=== PATIENT | female | born 1950 | race Caucasian/White ===

== ENCOUNTER 2020-06-22 13:33 | Inpatient (IN) | payer MEDICARE ==
[2020-06-22] VITALS (8 sets, daily range): BP systolic 134–150; BP diastolic 47–56
[~2020-06-22] VITALS: Ht 147 cm; Wt 45.2 kg
[~2020-06-22 13:33] MED LIST: BENZ200C25 PO; DOXY100C2 PO; ESTR0.455 PO; METH4TAB PO
[2020-06-22] MEDS ORDERED: NS IV 1000 ML 1,000 ML ONE (14:16)
[2020-06-22] MEDS ORDERED: PIPERACILLIN SODIUM/TAZOBACTAM 4.5 GM in NS (IVPB) 100 ML IV ONE (14:45)
[2020-06-22] MEDS ORDERED: ACETAMINOPHEN 500 MG TAB (TYLENOL) PO PRN (14:45)
[2020-06-22] MEDS ORDERED: NS IV ONE (14:45)
--- NOTE | 2020-06-22 14:48 | ED General ---
General Chief Complaint: Respiratory Problems Stated Complaint: COUGH Nursing Triage Note: Patient reports being starting on zithromax on Sunday 06/17. On Wednesday 06/20 started to have fatigue, nausea, generalized weakness. Nursing Sepsis Screen: Possible Sepsis Risk Source of Information: Patient Exam Limitations: No Limitations History of Present Illness Date Seen by Provider: Jun 22, 2020 Time Seen by Provider: 14:25 Initial Comments This is a 70-year-old female who presented for cough, shortness of breath, fever, nausea, and vomiting. States she developed a cough last Wednesday and was treated with a Z-Roberto on Wednesday06/24/20. Today, her symptoms worsened to include the fever, cough, nausea, vomiting. States she had 4 episodes of emesis today has been unable to hold down fluids. Reported chills but does not have a thermometer at home. Denies chest pain, abdominal pain, diarrhea, or dysuria. Timing/Duration: 1 Week, Getting Worse Severity: Moderate Associated Systoms: Cough, Nausea/Vomiting, Weakness Allergies and Home Medications Allergies Coded Allergies: No Known Drug Allergies (Unverified , 11/21/13) Home Medications Benzonatate 200 Mg Capsule, 1 EACH PO TID PRN for COUGH Prescribed by: SHELTON CORDERO on 11/21/131924 Benzonatate 200 Mg Capsule, 1 EACH PO TID PRN for COUGH Prescribed by: SHELTON CORDERO on 11/21/131900 Doxycycline Hyclate 100 Mg Capsule, 1 EACH PO BID Prescribed by: SHELTON CORDERO on 11/21/131924 Doxycycline Hyclate 100 Mg Capsule, 1 EACH PO BID Prescribed by: SHELTON CORDERO on 11/21/131900 Estrogens,Conjugated 0.45 Mg Tablet, 0.9 MG PO DAILY, (Reported) Methylprednisolone 4 Mg/Dose-Pack Tab.ds.pk, 1 PKT PO DAILY PRN for COUGH Prescribed by: SHELTON CORDERO on 11/21/131924 Methylprednisolone 4 Mg/Dose-Pack Tab.ds.pk, 1 PKT PO UD Prescribed by: SHELTON CORDERO on 11/21/131900 Patient Home Medication List Home Medication List Reviewed: Yes Review of Systems Review of Systems Constitutional: chills, dizziness, fever, malaise EENTM: no symptoms reported Respiratory: cough; No hemoptysis, No phlegm; short of breath; No stridor, No wheezing Cardiovascular: no symptoms reported Gastrointestinal: no symptoms reported Genitourinary: no symptoms reported Musculoskeletal: no symptoms reported Skin: no symptoms reported Psychiatric/Neurological: No Symptoms Reported Hematologic/Lymphatic: No Symptoms Reported Immunological/Allergic: no symptoms reported Past Rvhjpkv-Mpoajd-Stdlal Hx Patient Social History Alcohol Use: Denies Use Recreational Drug Use: No Smoking Status: Current Everyday Smoker Type Used: Cigarettes Recent Foreign Travel: No Contact w/Someone Who Travel: No Recent Infectious Disease Expo: No Past Medical History Surgeries: Yes Respiratory: Yes (mycoplasma pnuemonia) Cardiac: No Neurological: No Reproductive Disorders: No Sexually Transmitted Disease: No Gastrointestinal: No Musculoskeletal: No Endocrine: No Cancer: No Psychosocial: No Integumentary: No Blood Disorders: No Physical Exam-Suspected Sepsis Physical Exam Vital Signs Vital Signs - First Documented 06/22/20 06/22/20 06/22/20 14:07 17:41 19:13 Temp 38.6 Pulse 122 Resp 20 B/P (MAP) 161/72 (101) Pulse Ox 94 O2 Delivery Room Air FiO2 21 Capillary Refill : Less Than 3 Seconds Blood Pressure Mean: 101 Height, Weight, BMI Height: 5'0" Weight: 90lbs. oz. 40.529582qt; 18.00 BMI Method:Stated General Appearance: No Apparent Distress, WD/WN Eyes: Bilateral Eye Normal Inspection, Bilateral Eye PERRL, Bilateral Eye EOMI HEENT: PERRL/EOMI, TMs Normal, Normal ENT Inspection, Pharynx Normal Neck: Full Range of Motion, Normal Inspection, Non Tender Respiratory: Chest Non Tender, No Accessory Muscle Use, No Respiratory Distress, Crackles Cardiovascular: Regular Rate, Rhythm, No Edema, No Gallop, No Murmur, Normal Peripheral Pulses Gastrointestinal: Normal Bowel Sounds, Non Tender, Soft Back: Normal Inspection, No Vertebral Tenderness Extremity: Normal Capillary Refill, Normal Inspection, Normal Range of Motion, Non Tender Neurologic/Psychiatric: Alert, Oriented x3, No Motor/Sensory Deficits, Normal Mood/Affect Skin: normal color, warm/dry Focused Exam Lactate Level 06/22/20 14:20: Lactic Acid Level 0.89 Lactic Acid Level Progress/Results/Core Measures Suspected Sepsis Recent Fever Within 48 Hours: Yes Infection Criteria Present: Documented Infection New/Unexplained Altered Menta: No Sepsis Screen: Possible Sepsis Risk SIRS Temperature: Pulse: 122 Respiratory Rate: 20 Laboratory Tests 06/22/20 14:20: White Blood Count 30.3*H Blood Pressure 161 /72 Mean: 101 06/22/20 14:20: Lactic Acid Level 0.89 Laboratory Tests 06/22/20 14:20: Creatinine 0.72, INR Comment 1.5H, Platelet Count 278, Total Bilirubin 0.7 Results/Orders Lab Results Laboratory Tests Test 06/22/20 14:20 06/22/20 16:20 06/22/20 17:20 Range/Units White Blood Count 30.3 *H 4.3-11.0 10^3/uL Red Blood Count 3.48 L 4.35-5.85 10^6/uL Hemoglobin 11.0 L 11.5-16.0 G/DL Hematocrit 33 L 35-52 % Mean Corpuscular Volume 96 80-99 FL Mean Corpuscular Hemoglobin 32 25-34 PG Mean Corpuscular Hemoglobin Concent 33 32-36 G/DL Red Cell Distribution Width 13.1 10.0-14.5 % Platelet Count 278 130-400 10^3/uL Mean Platelet Volume 10.8 H 7.4-10.4 FL Neutrophils (%) (Auto) 90 H 42-75 % Lymphocytes (%) (Auto) 5 L 12-44 % Monocytes (%) (Auto) 5 0-12 % Eosinophils (%) (Auto) 0 0-10 % Basophils (%) (Auto) 0 0-10 % Neutrophils # (Auto) 27.4 H 1.8-7.8 X 10^3 Lymphocytes # (Auto) 1.4 1.0-4.0 X 10^3 Monocytes # (Auto) 1.5 H 0.0-1.0 X 10^3 Eosinophils # (Auto) 0.0 0.0-0.3 10^3/uL Basophils # (Auto) 0.0 0.0-0.1 10^3/uL Neutrophils % (Manual) 87 % Lymphocytes % (Manual) 9 % Monocytes % (Manual) 4 % Hypersegmented Neutrophils SLIGHT Blood Morphology Comment NORMAL Prothrombin Time 19.0 H 12.2-14.7 SEC INR Comment 1.5 H 0.8-1.4 Activated Partial Thromboplast Time 35 24-35 SEC D-Dimer 1.90 H 0.00-0.49 UG/ML Sodium Level 131 L 135-145 MMOL/L Potassium Level 3.6 3.6-5.0 MMOL/L Chloride Level 97 L 98-107 MMOL/L Carbon Dioxide Level 20 L 21-32 MMOL/L Anion Gap 14 5-14 MMOL/L Blood Urea Nitrogen 10 7-18 MG/DL Creatinine 0.72 0.60-1.30 MG/DL Estimat Glomerular Filtration Rate > 60 BUN/Creatinine Ratio 14 Glucose Level 86 70-105 MG/DL Lactic Acid Level 0.89 0.50-2.00 MMOL/L Calcium Level 9.3 8.5-10.1 MG/DL Corrected Calcium 9.2 8.5-10.1 MG/DL Total Bilirubin 0.7 0.1-1.0 MG/DL Aspartate Amino Transf (AST/SGOT) 21 5-34 U/L Alanine Aminotransferase (ALT/SGPT) 16 0-55 U/L Alkaline Phosphatase 88 40-136 U/L Total Protein 7.3 6.4-8.2 GM/DL Albumin 4.1 3.2-4.5 GM/DL Procalcitonin 24.46 H <0.10 NG/ML Coronavirus 2019 ([facility]) Negative Negative My Orders Orders - MESERET ALDRICH CAN RUNNER Ns Iv 1000 Ml (Sodium Chloride 0.9%) (06/22/20 14:16) Cbc With Automated Diff (06/22/20 14:44) Comprehensive Metabolic Panel (06/22/20 14:44) Blood Culture (06/22/20 14:44) Sputum Culture (06/22/20 14:44) Urinalysis (06/22/20 14:44) Urine Culture (06/22/20 14:44) Protime With Inr (06/22/20 14:44) Partial Thromboplastin Time (06/22/20 14:44) Chest 1 View, Ap/Pa Only (06/22/20 14:44) Acetaminophen Tablet (Tylenol Tablet) (06/22/20 14:45) Ed Iv/Invasive Line Start (06/22/20 14:44) Ed Iv/Invasive Line Start (06/22/20 14:44) Vital Signs Adult Sepsis Patie Q15M (06/22/20 14:44) Ns Iv 1000 Ml (Sodium Chloride 0.9%) (06/22/20 14:45) Piperacillin Sodium/Tazobactam (Zosyn Vi (06/22/20 14:45) Lactic Acid Analyzer (06/22/20 14:44) Manual Differential (06/22/20 14:20) Procalcitonin (Pct) (06/22/20 14:56) Medications Given in ED Current Medications Medications Dose Ordered Sig/Gia Route Start Time Stop Time Status Last Admin Dose Admin Acetaminophen 1,000 mg ONCE PRN PO 06/22/20 14:45 06/22/20 15:11 DC 06/22/20 15:10 1,000 MG Piperacillin Sod/ Tazobactam Sod 4.5 gm/Sodium Chloride 100 ml @ 200 mls/hr ONCE ONCE IV 06/22/20 14:45 06/22/20 15:14 DC 06/22/20 15:10 200 MLS/HR Sodium Chloride 1,000 ml @ ud STK-MED ONCE .ROUTE 06/22/20 14:16 06/22/20 14:21 DC 06/22/20 14:27 999 MLS/HR Vital Signs/I&O 06/22/20 06/22/20 06/22/20 06/22/20 14:07 17:41 18:00 18:00 Temp 38.6 37.0 37.3 Pulse 122 89 99 Resp 20 18 18 B/P (MAP) 161/72 (101) 127/49 150/51 (84) Pulse Ox 94 94 94 94 O2 Delivery Room Air Room Air Room Air 06/22/20 06/22/20 06/22/20 06/22/20 18:15 18:17 19:13 19:35 Temp 36.6 Pulse 93 89 86 Resp 17 B/P (MAP) 134/47 (76) Pulse Ox 95 96 96 O2 Delivery Room Air Room Air FiO2 21 06/22/20 06/22/20 20:00 20:11 Temp 37.0 Pulse Ox 97 O2 Delivery Room Air Room Air Capillary Refill : Less Than 3 Seconds Blood Pressure Mean: 101 Progress Note : Progress Note 70-year-old female recently treated with Z-Roberto for respiratory symptoms. Will workup for sepsis at this time, sepsis protocol initiated. Labs reviewed with WBC of 30.3, lactic acid normal at 0.89, procalcitonin 24.4. Received Tylenol 1 g with reduction in temperature from 102.5 to 101.8. Received 2 L of NS in ED, BP in left arm noted to be 90s 80s systolically over 50s, and right arm, 120s-130s systolically. Hemodynamically stable after 2 L. 1700: Orders for inpatient ICU admission with sepsis protocol completed after rapid COVID screen was negative. Diagnostic Imaging Diagonstic Imaging: Xray Plain Films/CT/US/NM/MRI: chest Comments NAME: KP SEGURA [facility] REC#: [id number] PT STATUS: REG ER : 1950 PHYSICIAN: MESERET ALDRICH CAN RUNNER ADMIT DATE: 06/22/20/ER Draft Date of Exam:06/22/20 CHEST 1 VIEW, AP/PA ONLY INDICATION: Sepsis, COMPARISON: 11/13/2015. EXAMINATION: Single view of the chest were obtained. FINDINGS: There is a probable developing infiltrate in the right middle lobe. The left lung is clear. The heart is normal. There is no pneumothorax. Osseous structures are normal. IMPRESSION: Probable developing infiltrate in the right middle lobe. Follow-up recommended. Dictated on workstation # [id number] Dict: 06/22/20 1503 Trans: 06/22/20 1509 [facility] [id number] Interpreted by: DHARMESH LINO Electronically signed by: Reviewed: Reviewed by Me Departure Communication (Admissions) Time/Spoke to Admitting Phy: 15:[address] Beal. Agreeable with inpatient ICU admission, recommended rapid COVID screen. 1658: Rapid COVID negative, will admit to ICU for pneumonia, sepsis. Impression Primary Impression: Acute pneumonia Additional Impression: Sepsis Disposition: ADMITTED INPATIENT Condition: Stable Admissions Decision to Admit Reason: Admit from ER (General) Decision to Admit/Date: Jun 22, 2020 Time/Decision to Admit Time: 15:45 Departure-Patient Inst. Referrals: TESSA GIBBONS MD (PCP/Family) Primary Care Physician Copy Copies To 1: SOUMYA GATES MD Copies To 2: ELIZ AGRAWAL STORMY D CAN RUNNER Jun 22, 2020 14:48
[2020-06-22 14:54] LABS: BASOPHILS % (AUTO) 0 % (0-10); EOSINOPHILS % (AUTO) 0 % (0-10); HEMATOCRIT 33 % (35-52); LYMPHOCYTES # (AUTO) 1.4 X 10^3 (1.0-4.0); LYMPHOCYTES % (AUTO) 5 % (12-44); MEAN CORPUSCULAR HEMOGLOBIN 32 PG (25-34); MEAN CORPUSCULAR HGB CONC 33 G/DL (32-36); MEAN CORPUSCULAR VOLUME 96 FL (80-99); MEAN PLATELET VOLUME 10.8 FL (7.4-10.4); MONOCYTES # (AUTO) 1.5 X 10^3 (0.0-1.0); MONOCYTES % (AUTO) 5 % (0-12); NEUTROPHILS # (AUTO) 27.4 X 10^3 (1.8-7.8); NEUTROPHILS % (AUTO) 90 % (42-75); PLATELET COUNT 278 10^3/uL (130-400)
[2020-06-22 14:56] LABS: WHITE BLOOD COUNT 30.3 10^3/uL (4.3-11.0)
[2020-06-22 15:03] LABS: ALBUMIN 4.1 GM/DL (3.2-4.5); CHLORIDE 97 MMOL/L (98-107); POTASSIUM 3.6 MMOL/L (3.6-5.0); SODIUM 131 MMOL/L (135-145)
[2020-06-22 15:04] LABS: CALCIUM 9.3 MG/DL (8.5-10.1)
[2020-06-22 15:05] LABS: GLUCOSE 86 MG/DL (70-105); TOTAL PROTEIN 7.3 GM/DL (6.4-8.2)
[2020-06-22 15:07] LABS: BILIRUBIN,TOTAL 0.7 MG/DL (0.1-1.0); CARBON DIOXIDE 20 MMOL/L (21-32)
[2020-06-22 15:09] LABS: ALKALINE PHOSPHATASE 88 U/L (40-136); CREATININE SERUM 0.72 MG/DL (0.60-1.30); GFR ESTIMATED > 60
[2020-06-22 15:10] LABS: BUN/CREATININE RATIO 14
--- NOTE | 2020-06-22 15:10 | Diagnostic Imaging Report ---
INDICATION: Sepsis, COMPARISON: 11/13/2015. EXAMINATION: Single view of the chest were obtained. FINDINGS: There is a probable developing infiltrate in the right middle lobe. The left lung is clear. The heart is normal. There is no pneumothorax. Osseous structures are normal. IMPRESSION: Probable developing infiltrate in the right middle lobe. Follow-up recommended. Dictated by: Dictated on workstation # [id number]
[2020-06-22 15:12] LABS: ALANINE AMINOTRANSFERASE 16 U/L (0-55)
[2020-06-22 15:13] LABS: INR 1.5 (0.8-1.4)
[2020-06-22 15:36] LABS: HYPERSEGMENTED NEUT SLIGHT; LYMPHOCYTES % (MANUAL) 9 %; MONOCYTES % (MANUAL) 4 %; NEUTROPHILS % (MANUAL) 87 %; RBC MORPH NORMAL
--- NOTE | 2020-06-22 17:43 | NUR ---
RECEIVED REPORT FROM BE HERNANDEZ.
--- NOTE | 2020-06-22 18:00 | NUR ---
KP SEGURA admitted to room CU1-1, with an admitting diagnosis of SEPSIS, PNEUMONIA, COVID PUI, on 06/22/20 from ER via WHEELCHAIR, accompanied by THIS RN AND LEAH HOOPER. KP SEGURA introduced to surroundings, call light, bed controls, phone, TV, temperature control, lights, meal times, smoking policy, visitor policy, side rail policy, bathrooms and showers. Patient Rights given to patient in the handbook. KP SEGURA verbalizes understanding that [facility] is not responsible for the loss or damage to any personal effects or valuables that are kept in the patients possession during their hospitalization.
[2020-06-22] MEDS ORDERED: LACTATED RINGERS 1,000 ML IV ONE ×2 (18:23→18:24)
--- NOTE | 2020-06-22 19:00 | NUR ---
LR STARTED AT 150ML/HR PER BRIDGE ORDERS. ORDER NOT SCANNED ON E-MAR DUE TO ORDERS NOT APPEARING ON E-MAR YET.
[2020-06-22] MEDS ORDERED: LACTATED RINGERS 1,000 ML IV SCH (19:15)
[2020-06-22] MEDS ORDERED: ENOXAPARIN 40 MG/0.4 ML (LOVENOX) SYR SQ SCH (19:15)
[2020-06-22] MEDS ORDERED: RT-ALBUTEROL INHALER HFA (VENTOLIN HFA) 18 GM IH PRN (19:30)
[2020-06-22] MEDS ORDERED: ENOXAPARIN 40 MG/0.4 ML (LOVENOX) SYR ONE (19:58)
[2020-06-22] MEDS: LACTATED RINGERS 1,000 ML IV SCH (20:43)
[2020-06-22] MEDS ORDERED: NS (IVPB) 100 ML ONE (20:52)
[2020-06-22] MEDS ORDERED: PIPERACILLIN/TAZO 4.5 GM VIAL (ZOSYN) IV ONE (20:52)
[2020-06-22] MEDS: PIPERACILLIN/TAZOBACTAM (BULK) 4.5 GM in NS (IVPB) 100 ML IV SCH (21:18)
[2020-06-23] VITALS (14 sets, daily range): BP systolic 142–161; BP diastolic 48–68
[2020-06-23] MEDS: LACTATED RINGERS 1,000 ML IV SCH ×2 (00:47→04:41)
[2020-06-23 03:47] LABS: BASOPHILS % (AUTO) 0 % (0-10); EOSINOPHILS % (AUTO) 0 % (0-10); HEMATOCRIT 28 % (35-52); HEMOGLOBIN 8.9 G/DL (11.5-16.0); LYMPHOCYTES # (AUTO) 1.8 X 10^3 (1.0-4.0); LYMPHOCYTES % (AUTO) 7 % (12-44); MEAN CORPUSCULAR HEMOGLOBIN 31 PG (25-34); MEAN CORPUSCULAR HGB CONC 32 G/DL (32-36); MEAN CORPUSCULAR VOLUME 98 FL (80-99); MEAN PLATELET VOLUME 10.4 FL (7.4-10.4); MONOCYTES # (AUTO) 1.3 X 10^3 (0.0-1.0); MONOCYTES % (AUTO) 5 % (0-12); NEUTROPHILS # (AUTO) 21.4 X 10^3 (1.8-7.8); NEUTROPHILS % (AUTO) 87 % (42-75); PLATELET COUNT 237 10^3/uL (130-400); WHITE BLOOD COUNT 24.6 10^3/uL (4.3-11.0)
[2020-06-23 03:57] LABS: CHLORIDE 106 MMOL/L (98-107); POTASSIUM 3.5 MMOL/L (3.6-5.0); SODIUM 138 MMOL/L (135-145)
[2020-06-23 03:58] LABS: CALCIUM 8.2 MG/DL (8.5-10.1)
[2020-06-23 03:59] LABS: GLUCOSE 62 MG/DL (70-105)
[2020-06-23 04:00] LABS: CARBON DIOXIDE 20 MMOL/L (21-32)
[2020-06-23 04:02] LABS: PHOSPHORUS 1.9 MG/DL (2.3-4.7)
[2020-06-23 04:03] LABS: BUN/CREATININE RATIO 11; CREATININE SERUM 0.71 MG/DL (0.60-1.30); GFR ESTIMATED > 60
[2020-06-23 04:05] LABS: MAGNESIUM 1.2 MG/DL (1.6-2.4)
[2020-06-23] MEDS: KCL 20 MEQ TAB (K-DUR) PO SCH (04:08)
[2020-06-23] MEDS: POTASSIUM CL 10MEQ/50ML IVPB 50 ML IV SCH (04:08)
[2020-06-23] MEDS: MAGNESIUM 1 GM/100 ML IVPB 100 ML IV SCH ×3 (04:08→06:56)
[2020-06-23] MEDS ORDERED: NS (IVPB) 100 ML ONE (04:10)
[2020-06-23] MEDS ORDERED: PIPERACILLIN/TAZO 4.5 GM VIAL (ZOSYN) IV ONE (04:10)
[2020-06-23] MEDS: PIPERACILLIN/TAZOBACTAM (BULK) 4.5 GM in NS (IVPB) 100 ML IV SCH ×3 (04:37→21:25)
[2020-06-23] MEDS ORDERED: KCL 20 MEQ TAB (K-DUR) PO ONE (09:00)
[2020-06-23] MEDS ORDERED: LACTATED RINGERS 1,000 ML IV SCH (09:41)
--- NOTE | 2020-06-23 09:45 | History & Physical ---
History of Present Illness History of Present Illness Reason for visit/HPI 70 yo F admitted for sepsis due to pneumonia. Rapid COVID19 test was negative. COVID 19 PCR test is pending. Patient was seen by Dr. Moya's office last week and was started on azithromycin for URI, cough symptoms. It has not helped her so she presented to the ER. She had a 103F temperature, WBC elevated 30K. Prolactin elevated. CXR showing right side pneumonia. Patient is on room air with a little shortness of breath. No other health concerns. She has used bevespi in the past for allergies as well as flonase. 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 Patient reports she is feeling much better. Still requiring no oxygen. Date of Admission Jun 22, 2020 at 17:00 Date Seen by a Provider: Jun 23, 2020 Time Seen by a Provider: 09:42 I consulted on this patient on 06/23/20 09:42 Attending Physician Jono Beal MD Admitting Physician Aleta Moya MD Consult Allergies and Home Medications Allergies Coded Allergies: No Known Drug Allergies (Unverified , 11/21/13) Home Medications Benzonatate 200 Mg Capsule, 1 EACH PO TID PRN for COUGH Prescribed by: SHELTON CORDERO on 11/21/131924 Benzonatate 200 Mg Capsule, 1 EACH PO TID PRN for COUGH Prescribed by: SHELTON CORDERO on 11/21/131900 Doxycycline Hyclate 100 Mg Capsule, 1 EACH PO BID Prescribed by: SHELTON CORDERO on 11/21/131924 Doxycycline Hyclate 100 Mg Capsule, 1 EACH PO BID Prescribed by: SHELTON CORDERO on 11/21/131900 Estrogens,Conjugated 0.45 Mg Tablet, 0.9 MG PO DAILY, (Reported) Methylprednisolone 4 Mg/Dose-Pack Tab.ds.pk, 1 PKT PO DAILY PRN for COUGH Prescribed by: SHELTON CORDERO on 11/21/131924 Methylprednisolone 4 Mg/Dose-Pack Tab.ds.pk, 1 PKT PO UD Prescribed by: SHELTON CORDERO on 11/21/131900 Patient Home Medication List Home Medication List Reviewed: Yes Past Ibzhkfr-Jrwnxv-Wlvqim Hx Patient Social History Alcohol Use: Denies Use Recreational Drug Use: No Smoking Status: Current Everyday Smoker Type Used: Cigarettes Recent Foreign Travel: No Contact w/other who traveled: No Recent Infectious Disease Expo: No Immunizations Up To Date Date of Influenza Vaccine: Jun 07, 2020 Surgeries Yes Respiratory Yes (mycoplasma pnuemonia) Cardiovascular No Neurological No Reproductive System Hx Reproductive Disorders: No Sexually Transmitted Disease: No Gastrointestinal No Musculoskeletal No Endocrine History of Endocrine Disorders: No Cancer No Psychosocial History of Psychiatric Problem: No Integumentary History of Skin or Integumenta: No Blood Transfusions History of Blood Disorders: No Family Medical History Family Hx: Cardiovascular disease 19 MOTHER FH: CVA (cerebrovascular accident) 19 MOTHER Stroke or transient ischemic attack in father 19 FATHER Valvular heart disease G8 BROTHER Review of Systems Review of Systems General: No Chills, No Night Sweats; Fatigue HEENT: No Head Aches Pulmonary: Dyspnea, Cough (mostly dry) Cardiovascular: Chest Pain, Palpitations Gastrointestinal: Nausea; No: Vomiting, Abdominal Pain Genitourinary: No Dysuria Musculoskeletal: No: neck pain, shoulder pain Neurological: Weakness Physical Exam Vital Signs Vital Signs - First Documented 06/22/20 06/22/20 06/22/20 14:07 17:41 19:13 Temp 38.6 Pulse 122 Resp 20 B/P (MAP) 161/72 (101) Pulse Ox 94 O2 Delivery Room Air FiO2 21 Capillary Refill : Less Than 3 Seconds Height, Weight, BMI Height: 5'0" Weight: 90lbs. oz. 40.205060nf; 18.00 BMI Method:Stated General Appearance: WD/WN, Mild Distress HEENT: PERRL/EOMI Neck: Non Tender, Supple Respiratory: Chest Non Tender, No Accessory Muscle Use, Decreased Breath Sounds (right lung) Cardiovascular: Regular Rate, Rhythm, No Edema Gastrointestinal: Non Tender, Soft Rectal: Deferred Back: No CVA Tenderness, No Vertebral Tenderness Extremity: Non Tender, No Calf Tenderness Neurologic/Psychiatric: Alert, Oriented x3 Skin: Warm/Dry Assessment/Plan Assessment/Plan Admission Dx sepsis secondary to pneumonia Admission Status: Inpatient Order (span 2 midnights) Reason for Inpatient Admission: Patient admitted with sepsis due to pneumonia. Will require 2 midnights for management of care as she could decompensate quickly. She will need IV antibiotics until she is at least 24hours fever free. Assessment and Plan Admitted 06/22/20 for sepsis due to pneumonia. 06/23/20- sodium improved with IVF. Correcting hypomagnesemia and hypokalemia. Blood pressure has significantly improved from the ER. Patient still on room air. Will turn her IVF off because she is tolerating a diet. Awaiting COVID 19 test. Rapid was negative. Dispo: if she continues to improve and COVID19 negative- transition to augmentin and d/c to home 06/24/20 Problems: (1) Sepsis (2) Acute pneumonia (3) Hyponatremia (4) Hypokalemia (5) Hypomagnesemia Clinical Quality Measures DVT/VTE Risk/Contraindication: Risk Factor Score Per Nursin RFS Level Per Nursing on Admit: 4+=Very High JONO BEAL MD Jun 23, 2020 09:45
--- NOTE | 2020-06-23 11:48 | NUR ---
PT TRANSFERRED VIA W/C WITH PUI PRECAUTIONS TO ROOM 402 WITHOUT DIFFICULTIES. PATIENT TOLERATED WELL. ALL PERSONAL BELONGINGS WITH PATIENT.
[2020-06-23] MEDS: RT-ALBUTEROL INHALER HFA (VENTOLIN HFA) 18 GM IH PRN (18:50)
[2020-06-23] MEDS ORDERED: ENOXAPARIN 40 MG/0.4 ML (LOVENOX) SYR SQ SCH ×2 (21:00→21:15)
[2020-06-24] MEDS: RT-ALBUTEROL INHALER HFA (VENTOLIN HFA) 18 GM IH PRN (01:57)
--- NOTE | 2020-06-24 02:10 | NUR ---
0157-pt called this rn in room-pt sitting upright in bed coughing, pt states that she is having shortness of air- spo2 93% hr 94 prn albuterol inhaler administered 0210-pt states that the shortness of air has resolved-spo2 97% hr 106-denies any other complaints or concerns at this time.
[2020-06-24 04:35] VITALS: BP 158/62
[2020-06-24] MEDS: PIPERACILLIN/TAZOBACTAM (BULK) 4.5 GM in NS (IVPB) 100 ML IV SCH (05:28)
[2020-06-24 06:12] LABS: BASOPHILS % (AUTO) 0 % (0-10); EOSINOPHILS % (AUTO) 0 % (0-10); HEMATOCRIT 27 % (35-52); HEMOGLOBIN 8.9 G/DL (11.5-16.0); LYMPHOCYTES # (AUTO) 1.5 X 10^3 (1.0-4.0); LYMPHOCYTES % (AUTO) 12 % (12-44); MEAN CORPUSCULAR HEMOGLOBIN 32 PG (25-34); MEAN CORPUSCULAR HGB CONC 33 G/DL (32-36); MEAN CORPUSCULAR VOLUME 97 FL (80-99); MEAN PLATELET VOLUME 10.8 FL (7.4-10.4); MONOCYTES # (AUTO) 0.9 X 10^3 (0.0-1.0); MONOCYTES % (AUTO) 7 % (0-12); NEUTROPHILS # (AUTO) 9.8 X 10^3 (1.8-7.8); NEUTROPHILS % (AUTO) 81 % (42-75); PLATELET COUNT 277 10^3/uL (130-400); WHITE BLOOD COUNT 12.1 10^3/uL (4.3-11.0)
[2020-06-24 06:21] LABS: CHLORIDE 104 MMOL/L (98-107); POTASSIUM 3.4 MMOL/L (3.6-5.0); SODIUM 138 MMOL/L (135-145)
[2020-06-24 06:22] LABS: CALCIUM 8.7 MG/DL (8.5-10.1)
[2020-06-24 06:23] LABS: GLUCOSE 65 MG/DL (70-105)
[2020-06-24 06:24] LABS: CARBON DIOXIDE 20 MMOL/L (21-32)
[2020-06-24 06:26] LABS: PHOSPHORUS 1.6 MG/DL (2.3-4.7)
[2020-06-24 06:27] LABS: CREATININE SERUM 0.72 MG/DL (0.60-1.30); GFR ESTIMATED > 60
[2020-06-24 06:28] LABS: BUN/CREATININE RATIO 7
[2020-06-24 06:29] LABS: MAGNESIUM 1.4 MG/DL (1.6-2.4)
[2020-06-24] MEDS ORDERED: KCL 20 MEQ TAB (K-DUR) PO NR (07:00)
[2020-06-24] MEDS: POTASSIUM CL 10MEQ/50ML IVPB 50 ML IV SCH (07:02)
[2020-06-24] MEDS: KCL 20 MEQ TAB (K-DUR) PO SCH (07:15)
[2020-06-24] MEDS: MAGNESIUM 1 GM/100 ML IVPB 100 ML IV SCH ×3 (07:54→09:02)
[2020-06-24 08:00] VITALS: BP 152/64
--- NOTE | 2020-06-24 09:14 | Discharge Summary ---
Diagnosis/Chief Complaint Date of Admission Jun 22, 2020 at 17:00 Date of Discharge Discharge Summary Discharge Physical Examination Allergies: Coded Allergies: No Known Drug Allergies (Unverified , 11/21/13) Vitals & I&Os Vital Signs Date Time Temp Pulse Resp B/P (MAP) Pulse Ox O2 Delivery O2 Flow Rate FiO2 06/24/20 07:00 Room Air 06/24/20 04:35 36.4 95 22 158/62 (94) 97 06/23/20 12:53 95.00 06/22/20 19:13 21 Hospital Course Pending Labs Laboratory Tests 06/24/20 05:45: White Blood Count 12.1, Red Blood Count 2.82, Hemoglobin 8.9, Hematocrit 27, Mean Corpuscular Volume 97, Mean Corpuscular Hemoglobin 32, Mean Corpuscular Hemoglobin Concent 33, Red Cell Distribution Width 13.3, Platelet Count 277, Mean Platelet Volume 10.8, Neutrophils (%) (Auto) 81, Lymphocytes (%) (Auto) 12, Monocytes (%) (Auto) 7, Eosinophils (%) (Auto) 0, Basophils (%) (Auto) 0, Neutrophils # (Auto) 9.8, Lymphocytes # (Auto) 1.5, Monocytes # (Auto) 0.9, Eosinophils # (Auto) 0.0, Basophils # (Auto) 0.0, Sodium Level 138, Potassium Level 3.4, Chloride Level 104, Carbon Dioxide Level 20, Anion Gap 14, Blood Urea Nitrogen 5, Creatinine 0.72, Estimat Glomerular Filtration Rate > 60, BUN/Creatinine Ratio 7, Glucose Level 65, Calcium Level 8.7, Phosphorus Level 1.6, Magnesium Level 1.4 Discharge Instructions to patient/family Please see electronic discharge instructions given to patient. Discharge Medications Reviewed and agree with Discharge Medication list on patient's Discharge Instruction sheet Clinical Quality Measures DVT/VTE Risk/Contraindication: Risk Factor Score Per Nursin RFS Level Per Nursing on Admit: 4+=Very High TESSA GIBBONS MD Jun 24, 2020 09:14
[2020-06-24] MEDS ORDERED: AUGMENTIN 875 MG TAB (AMOXICILLIN/CLAVULANATE) PO NR (09:15)
[2020-06-24] MEDS ORDERED: LACTOBACILLUS ACIDOPHILUS (PROBIOTIC) CAPSULE PO NR (09:15)
[2020-06-24] MEDS ORDERED: LACT1CAP87 PO (09:18)
[2020-06-24] MEDS ORDERED: AMOX-358 PO (09:18)
[2020-06-24] MEDS ORDERED: MAGN250T2 PO (09:18)
[2020-06-24] MEDS ORDERED: ALBU18HF2 IH (09:18)
--- NOTE | 2020-06-24 09:19 | Discharge Inst-Simple/Standard ---
Discharge Inst-Standard Reconcile Patient Problems Problems Reviewed?: Yes Discharge Medications New, Converted or Re-Newed RX: Transmitted to Pharmacy ([facility]) Patient Instructions/Follow Up Plan of Care/Instructions/FU: 1 wk follow up with [facility] use inhaler scheduled four times daily and may use up to every 4 hours if needed for shortness of breath take antibiotics with food take probiotics three times daily to prevent diarrhea from the antibiotics Activity as Tolerated: Yes Discharge Diet: Regular Diet Return to The Hospital For: any concern for worsening shortness of breath, trouble breathing, allergic reaction to antibiotics, or any other lifethreatening illness or injury Planned Outpatient Orders/Ref. Pneu Vac Indicated: Yes Medication List: Active Scripts Active Magnesium 250 Mg Tablet 250 Mg PO DAILY Ventolin Hfa (Albuterol Sulfate) 18 Gm Hfa.aer.ad 0 Gm IH RTQ4HR PRN use scheduled qid x 3 days and q 4 hours prn shortness of breath Acidophilus Lactobacilli (Lactobacillus Acidophilus) 1 Each Capsule 1 Each PO TIDWM Augmentin 875-125 Tablet (Amoxicillin/Potassium Clav) 1 Each Tablet 1 Each PO BID Lab results: Laboratory Tests Test 06/24/20 05:45 Range/Units White Blood Count 12.1 H 4.3-11.0 10^3/uL Red Blood Count 2.82 L 4.35-5.85 10^6/uL Hemoglobin 8.9 L 11.5-16.0 G/DL Hematocrit 27 L 35-52 % Mean Corpuscular Volume 97 80-99 FL Mean Corpuscular Hemoglobin 32 25-34 PG Mean Corpuscular Hemoglobin Concent 33 32-36 G/DL Red Cell Distribution Width 13.3 10.0-14.5 % Platelet Count 277 130-400 10^3/uL Mean Platelet Volume 10.8 H 7.4-10.4 FL Neutrophils (%) (Auto) 81 H 42-75 % Lymphocytes (%) (Auto) 12 12-44 % Monocytes (%) (Auto) 7 0-12 % Eosinophils (%) (Auto) 0 0-10 % Basophils (%) (Auto) 0 0-10 % Neutrophils # (Auto) 9.8 H 1.8-7.8 X 10^3 Lymphocytes # (Auto) 1.5 1.0-4.0 X 10^3 Monocytes # (Auto) 0.9 0.0-1.0 X 10^3 Eosinophils # (Auto) 0.0 0.0-0.3 10^3/uL Basophils # (Auto) 0.0 0.0-0.1 10^3/uL Sodium Level 138 135-145 MMOL/L Potassium Level 3.4 L 3.6-5.0 MMOL/L Chloride Level 104 98-107 MMOL/L Carbon Dioxide Level 20 L 21-32 MMOL/L Anion Gap 14 5-14 MMOL/L Blood Urea Nitrogen 5 L 7-18 MG/DL Creatinine 0.72 0.60-1.30 MG/DL Estimat Glomerular Filtration Rate > 60 BUN/Creatinine Ratio 7 Glucose Level 65 L 70-105 MG/DL Calcium Level 8.7 8.5-10.1 MG/DL Phosphorus Level 1.6 L 2.3-4.7 MG/DL Magnesium Level 1.4 L 1.6-2.4 MG/DL My orders: Orders - TESSA GIBBONS MD Amoxicillin/Clavulanate Tablet (Augmenti (06/24/20 09:15) Lactobacillus Acidophilus Cap (Acidophil (06/24/20 09:15) Attending Discharge Inpt/Inobs (06/24/20 09:14) TESSA GIBBONS MD Jun 24, 2020 09:19
[2020-06-24 10:50] VITALS: BP 152/64
--- NOTE | 2020-06-24 12:34 | NUR ---
I WENT THROUGH THE PATIENT'S MED LIST ON FILE FROM HER SNF TO HELP Niraj Terri COMPLETE THIS MED REC. OTC: PROBIOTIC TYLENOL IMODIUM CLARITIN TRIAMCINOLONE CREAM ASPIRIN Addendum: 06/24/20 at 1236 by CHRISTIE EUCEDA mailroom courier DISREGARD PREVIOUS NOTE. I WAS UNABLE TO COMPLETE THIS MED REC DUE TO THE PATIENT BEING DISCHARGED.
[2020-06-24] MEDS ORDERED: ENOXAPARIN 40 MG/0.4 ML (LOVENOX) SYR SQ SCH (21:00)
== END 2020-06-24 10:50 | disposition home or self-care (01) | DRG 871 ==
LOC: EDUNIT# 13:33 → ER 13:34 → ICU 17:00 → 4TH 06-23 12:00
PROVIDERS: ADMIT Family Medicine; ATTEND Family Medicine
DX: A41.9 Sepsis, unspecified organism (principal); J18.9 Pneumonia, unspecified organism; E87.1 Hypo-osmolality and hyponatremia; E83.42 Hypomagnesemia; E87.6 Hypokalemia; F17.210 Nicotine dependence, cigarettes, uncomplicated; Z20.828 Contact with and (suspected) exposure to other viral communicable diseases
CPT/HCPCS: 36415; 71045; 80048; 80053; 83605; 83735; 84100; 84145; 85007; 85025; 85027; 85379; 85610; 85730; 87040; 87081; 87635; 93005; 94640; 94664

== ENCOUNTER 2021-09-28 11:24 | Emergency (ER) | payer MEDICARE, OTHER ==
[~2021-09-28] VITALS: Ht 149.8 cm; Wt 40.8 kg
[~2021-09-28 11:24] MED LIST changes: +ALBU18HF2 IH; +AMOX-358 PO; +LACT1CAP87 PO; +MAGN250T2 PO
[2021-09-28 11:50] VITALS: BP 178/79
[2021-09-28] MEDS ORDERED: LACTATED RINGERS 1,000 ML IV ONE (12:00)
--- NOTE | 2021-09-28 12:04 | ED General ---
General Chief Complaint: COVID19 Suspect/Confirmed Stated Complaint: COVID POSITIVE/WEAKNESS/COUGH Source of Information: Patient History of Present Illness Date Seen by Provider: Sep 28, 2021 Time Seen by Provider: 11:45 Initial Comments PT ARRIVES VIA POV FROM HOME PT STATES HER TESTED + FOR COVID-19 ON 09/12/21 PT STATES SHE WAS NOT HAVING ANY SYMPTOMS, BUT DECIDED TO GET TESTED HERSELF BECAUSE HAD COVID, AND SHE TESTED + FOR COVID-19 ON 09/20/21--WENT THROUGH DRIVE THRU TESTING AT [facility]. DID NOT ACTUALLY SEE A PROVIDER, AND WAS NOT GIVEN ANY RX'S SHE STATES SHE HAS NOT HAD COVID-19 VACCINE PT IS NOT INTERESTED IN BAM/MAB INFUSION STATES SHE IS HERE BECAUSE SHE STILL FEELS WEAK AND HAS DECREASED APPETITE STATES SHE ONLY GETS NAUSEATED WHEN SHE EATS, BUT IS ABLE TO DRINK LIQUIDS OK STATES SHE HAD A COUGH BUT IT IS BETTER, AND FEELS LIKE HER COUGH NOW IS JUST HER NORMAL COUGH FROM COPD. PT CONTINUES TO SMOKE 1 TO 3 PPD PT HAS AN ALBUTEROL INHALER BUT HAS NOT USED IT TODAY. USES HER MAINTENANCE INHALER TWICE A DAY EVERYDAY--BEVESPI DENIES SHORTNESS OF BREATH DENIES FEVER/SWEATS/CHILLS HAD DIARRHEA FOR 3 DAYS, BUT NONE FOR SEVERAL DAYS DENIES HEADACHE TODAY, BUT HAD HEADACHE INITIALLY DENIES BODY ACHES TODAY, BUT HAS HAD THEM +DECREASED TASTE AND SMELL HAS NOT TAKEN ANYTHING FOR SYMPTOMS SYMPTOMS ARE NOT ANY DIFFERENT TODAY IN ANY WAY PT STATES SHE HAS NOT ACTUALLY SOUGHT CARE OR BEEN SEEN BY ANYONE FOR THIS. HOWEVER, ON MED RECONCILIATION, RX FOR DECADRON 4 MG X [address] GIBBONS PCP: DR. GIBBONS Allergies and Home Medications Allergies Coded Allergies: cephalexin (Verified Allergy, Unknown, Itching, 09/28/21) RASH phenobarbital (Verified Allergy, Unknown, 09/28/21) "GOES CRAZY , CANT CONTROL ANYTHING" Patient Home Medication List Home Medication List Reviewed: Yes Albuterol Sulfate (Ventolin Hfa) 18 Gm Hfa.aer.ad, 0 GM IH RTQ4HR PRN for SOA Prescribed by: TESSA GIBBONS on 06/24/20 0918 Amoxicillin/Potassium Clav (Augmentin 875-125 Tablet) 1 Each Tablet, 1 EACH PO BID Prescribed by: TESSA GIBBONS on 06/24/20917 Ciprofloxacin HCl (Ciprofloxacin HCl) 500 Mg Tablet, 500 MG PO BID Prescribed by: MARGUERITE ENRIQUE on 09/28/21 1407 Lactobacillus Acidophilus (Acidophilus Lactobacilli) 1 Each Capsule, 1 EACH PO TIDWM Prescribed by: TESSA GIBBONS on 06/24/20917 Magnesium (Magnesium) 250 Mg Tablet, 250 MG PO DAILY Prescribed by: TESSA GIBBONS on 06/24/20917 Review of Systems Review of Systems Constitutional: see HPI; No chills, No dizziness, No fever; malaise, weakness EENTM: see HPI Respiratory: see HPI, cough Cardiovascular: no symptoms reported Gastrointestinal: see HPI, diarrhea, loss of appetite, nausea; No vomiting Genitourinary: no symptoms reported Musculoskeletal: see HPI Skin: no symptoms reported Psychiatric/Neurological: See HPI Hematologic/Lymphatic: No Symptoms Reported Immunological/Allergic: no symptoms reported Past Cnlkhes-Ivrbez-Jinrpp Hx Patient Social History Tobacco Use?: Yes (1-3 PPD) Tobacco type used: Cigarettes Smoking Status: Current Everyday Smoker Substance use?: No Alcohol Use?: No Past Medical History Surgeries: Yes Hysterectomy, Oophorectomy Respiratory: Yes (mycoplasma pnuemonia) Pneumonia, COPD Cardiac: No Neurological: No Reproductive Disorders: Yes (CERVICAL/UTERINE CANCER) [employer]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 Psychosocial: No Integumentary: No Blood Disorders: No Family Medical History Cardiovascular disease 19 MOTHER FH: CVA (cerebrovascular accident) 19 MOTHER Stroke or transient ischemic attack in father 19 FATHER Valvular heart disease G8 BROTHER SOCIAL HISTORY: -SMOKES 1 TO 3 PPD -ETOH--DENIES USE -DRUGS--DENIES USE Physical Exam Vital Signs Capillary Refill : Height, Weight, BMI Height: 5'0" Weight: 90lbs. oz. 40.622361gg; 18.00 BMI Method:Stated General Appearance: No Apparent Distress, WD/WN, Thin, Other (DOES NOT APPEAR ILL OR TO BE IN ANY DISCOMFORT OR DISTRESS. 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 II- XII Norm as Tested Skin: Normal Color, Warm/Dry Focused Exam Sepsis Stage: Ruled Out Reason for ruling out sepsis: DOES NOT MEET CRITERIA Possible Source: Pulmonary Lactate Level 09/28/21 14:22: Lactic Acid Level 1.35 Time of Focused Exam: 12:40 Respiratory: Normal Breath Sounds, No Accessory Muscle Use, No Respiratory Distress Cardiovascular: Regular Rate, Rhythm, No Murmur Capillary Refill: Less Than 3 Seconds Skin: normal color, warm/dry Lactic Acid Level Laboratory Tests Test 09/28/21 14:22 Lactic Acid Level 1.35 MMOL/L (0.50-2.00) Within 3hrs of presentation: Admin fluids, Admin ABX, Blood cultures prior to ABX's, Focus exam, Lactate level Progress/Results/Core Measures Suspected Sepsis SIRS Temperature: Pulse: Respiratory Rate: Laboratory Tests 09/28/21 12:00: White Blood Count 4.8 Blood Pressure / Mean: 09/28/21 14:22: Lactic Acid Level 1.35 Laboratory Tests 09/28/21 12:00: Creatinine 0.73, Platelet Count 194, Total Bilirubin 0.3 Results/Orders Lab Results Laboratory Tests Test 09/28/21 11:26 09/28/21 12:00 09/28/21 12:08 09/28/21 14:22 Range/Units Lab Scanned Report Referred Lab Report [id number] White Blood Count 4.8 4.3-11.0 10^3/uL Red Blood Count 3.51 L 3.80-5.11 10^6/uL Hemoglobin 11.0 L 11.5-16.0 g/dL Hematocrit 33 L 35-52 % Mean Corpuscular Volume 95 80-99 fL Mean Corpuscular Hemoglobin 31 25-34 pg Mean Corpuscular Hemoglobin Concent 33 32-36 g/dL Red Cell Distribution Width 12.9 10.0-14.5 % Platelet Count 194 130-400 10^3/uL Mean Platelet Volume 10.4 9.0-12.2 fL Immature Granulocyte % (Auto) 0 % Neutrophils (%) (Auto) 57 42-75 % Lymphocytes (%) (Auto) 34 12-44 % Monocytes (%) (Auto) 9 0-12 % Eosinophils (%) (Auto) 0 0-10 % Basophils (%) (Auto) 0 0-10 % Neutrophils # (Auto) 2.7 1.8-7.8 10^3/uL Lymphocytes # (Auto) 1.6 1.0-4.0 10^3/uL Monocytes # (Auto) 0.4 0.0-1.0 10^3/uL Eosinophils # (Auto) 0.0 0.0-0.3 10^3/uL Basophils # (Auto) 0.0 0.0-0.1 10^3/uL Immature Granulocyte # (Auto) 0.0 0.0-0.1 10^3/uL Erythrocyte Sedimentation Rate 47 H 0-30 MM/HR D-Dimer 0.59 H 0.00-0.49 UG/ML Sodium Level 134 L 135-145 MMOL/L Potassium Level 3.6 3.6-5.0 MMOL/L Chloride Level 97 L 98-107 MMOL/L Carbon Dioxide Level 25 21-32 MMOL/L Anion Gap 12 5-14 MMOL/L Blood Urea Nitrogen 9 7-18 MG/DL Creatinine 0.73 0.60-1.30 MG/DL Estimat Glomerular Filtration Rate 79 BUN/Creatinine Ratio 12 Glucose Level 96 70-105 MG/DL Calcium Level 9.0 8.5-10.1 MG/DL Corrected Calcium 9.1 8.5-10.1 MG/DL Magnesium Level 1.4 L 1.6-2.4 MG/DL Total Bilirubin 0.3 0.1-1.0 MG/DL Aspartate Amino Transf (AST/SGOT) 29 5-34 U/L Alanine Aminotransferase (ALT/SGPT) 17 0-55 U/L Alkaline Phosphatase 73 40-136 U/L C-Reactive Protein High Sensitivity 2.06 H 0.00-0.50 MG/DL Total Protein 7.0 6.4-8.2 GM/DL Albumin 3.9 3.2-4.5 GM/DL Procalcitonin 0.04 <0.10 NG/ML Urine Color YELLOW Urine Clarity CLOUDY Urine pH 6.0 5-9 Urine Specific [place] 1.020 1.016-1.022 Urine Protein NEGATIVE NEGATIVE Urine Glucose (UA) NEGATIVE NEGATIVE Urine Ketones NEGATIVE NEGATIVE Urine Nitrite POSITIVE H NEGATIVE Urine Bilirubin NEGATIVE NEGATIVE Urine Urobilinogen 0.2 < = 1.0 MG/DL Urine Leukocyte Esterase NEGATIVE NEGATIVE Urine RBC (Auto) NEGATIVE NEGATIVE Urine RBC NONE /HPF Urine WBC 2-5 /HPF Urine Crystals NONE /LPF Urine Bacteria LARGE H /HPF Urine Casts NONE /LPF Urine Mucus SMALL H /LPF Urine Culture Indicated YES Lactic Acid Level 1.35 0.50-2.00 MMOL/L Micro Results Microbiology 09/28/21 Urine Culture - Final, Complete Klebsiella pneumoniae My Orders Orders - MARGUERITE ENRIQUE DO Isolation Central Supply Req (09/28/21 11:45) Ed Iv/Invasive Line Start (09/28/21 11:56) Monitor-Rhythm Ecg Trace Only (09/28/21 11:56) Cbc With Automated Diff (09/28/21 11:56) Comprehensive Metabolic Panel (09/28/21 11:56) Hs C Reactive Protein (09/28/21 11:56) Magnesium (09/28/21 11:56) Ua Culture If Indicated (09/28/21 11:56) Erythrocyte Sedimentation Rate (09/28/21 11:56) Chest 1 View, Ap/Pa Only (09/28/21 11:56) Ed Iv/Invasive Line Start (09/28/21 11:56) Lactated Ringers (Lr 1000 Ml Iv Solution (09/28/21 12:00) Covid-19 External Lab Results (09/28/21 11:56) Urine Culture (09/28/21 12:08) Fibrin Degradation Products (09/28/21 12:48) Lactic Acid Analyzer (09/28/21 12:48) Procalcitonin (Pct) (09/28/21 12:48) Ed Iv/Invasive Line Start (09/28/21 12:55) Vital Signs Adult Sepsis Patie Q15M (09/28/21 12:55) Remove Rings In Anticipation O (09/28/21 12:55) Ct Angio Chest W (09/28/21 13:05) Iohexol Injection (Omnipaque 350 Mg/Ml 1 (09/28/21 13:15) Received Contrast (Hold Metformin- Contr (09/28/21 13:15) Ns (Ivpb) (Sodium Chloride 0.9% Ivpb Bag (09/28/21 13:15) Ciprofloxacin Iv 400mg/200ml (Cipro Iv S (09/28/21 13:30) Iv Infusion <= First Hr Ed (09/28/21 ) Medications Given in ED Vital Signs/I&O Capillary Refill : Progress Note : Progress Note PLACED IN ISOLATION ROOM PPE WORN AT ALL TIMES GIVEN IV FLUIDS NO COUGH NO DYSPNEA NO HYPOXIA NO FEVER VITALS STABLE UNEVENTFUL ER STAY Diagnostic Imaging Comments CXR--PER RADIOLOGIST REPORT AT 1243 FINDINGS: Heart size and pulmonary vasculature are normal. The lungs are clear without consolidation, pleural effusion, or pneumothorax. The osseous structures are intact. IMPRESSION: 1. No acute radiographic abnormality in the chest. CT CHEST ANGIOGRAM--PER RADIOLOGIST REPORT AT 1355 FINDINGS: Intraluminal pulmonary arterial branches widely patent. No filling defect. No PE. The thoracic aorta patent and nonaneurysmal. The symmetrical air trapping and features of emphysema with some mild biapical pleural-parenchymal scarring, no infiltrate or groundglass opacity. No consolidating pneumonia or edema. There is abdominal aortic atherosclerotic vascular disease. The upper abdomen appeared nonacute. No effusion or pneumothorax. No mass or lymphadenopathy. There is atherosclerotic disease in the left subclavian artery beyond the takeoff of the left vertebral. This vessel shows occlusion with distal reconstitution, a presumed chronic but correlate with any new left upper extremity pain. IMPRESSION: 1. Negative for PE with clear lungs, features of COPD but no acute pulmonary pathology. 2. 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 While likely chronic correlate with any new left upper extremity pain. Reviewed: Reviewed by Me Departure Impression Primary Impression: COVID-19 virus infection Additional Impressions: UTI (urinary tract infection) COPD (chronic obstructive pulmonary disease) Disposition: 01 HOME, SELF-CARE Condition: Stable Departure-Patient Inst. Decision time for Depature: 14:00 Referrals: TESSA GIBBONS MD (PCP/Family) Primary Care Physician Patient Instructions: COVID-19 (DC), Urinary Tract Infections in Adults, Preventing the Spread of an Infectious Disease Add. Discharge Instructions: USE YOUR INHALERS PRESCRIBED CONTINUE YOUR DEXAMETHASONE PRESCRIBED TYLENOL AND MOTRIN NEEDED FOR PAIN OR FEVER LOTS OF CLEAR LIQUIDS--WATER, BROTH, JELLO, GATORADE QUARANTINE YOURSELF AND ALL HOUSEHOLD CONTACTS FOR AN ADDITIONAL 10 DAYS RETURN TO ER IF YOUR SYMPTOMS WORSEN FOLLOW UP WITH DR. GIBBONS NEEDED All discharge instructions reviewed with patient and/or family. Voiced understanding. Scripts Ciprofloxacin HCl (Ciprofloxacin HCl) 500 Mg Tablet 500 MG PO BID, #14 TAB Prov: MARGUERITE ENRIQUE DO 09/28/21 MARGUERITE ENRIQUE DO Sep 28, 2021 12:04
[2021-09-28 12:08] LABS: BASOPHILS % (AUTO) 0 % (0-10); EOSINOPHILS % (AUTO) 0 % (0-10); HEMATOCRIT 33 % (35-52); LYMPHOCYTES # (AUTO) 1.6 10^3/uL (1.0-4.0); LYMPHOCYTES % (AUTO) 34 % (12-44); MEAN CORPUSCULAR HEMOGLOBIN 31 pg (25-34); MEAN CORPUSCULAR HGB CONC 33 g/dL (32-36); MEAN CORPUSCULAR VOLUME 95 fL (80-99); MEAN PLATELET VOLUME 10.4 fL (9.0-12.2); MONOCYTES # (AUTO) 0.4 10^3/uL (0.0-1.0); MONOCYTES % (AUTO) 9 % (0-12); NEUTROPHILS # (AUTO) 2.7 10^3/uL (1.8-7.8); NEUTROPHILS % (AUTO) 57 % (42-75); PLATELET COUNT 194 10^3/uL (130-400); WHITE BLOOD COUNT 4.8 10^3/uL (4.3-11.0)
[2021-09-28 12:19] LABS: ALBUMIN 3.9 GM/DL (3.2-4.5); POTASSIUM 3.6 MMOL/L (3.6-5.0)
[2021-09-28 12:21] LABS: BILIRUBIN,URINE NEGATIVE (NEGATIVE); CLARITY,URINE CLOUDY; COLOR,URINE YELLOW; GLUCOSE, URINE (UA) NEGATIVE (NEGATIVE); KETONES,URINE NEGATIVE (NEGATIVE); LEUKOCYTE ESTERASE ,URINE NEGATIVE (NEGATIVE); NITRITE,URINE POSITIVE (NEGATIVE); PROTEIN,URINE NEGATIVE (NEGATIVE)
[2021-09-28 12:23] LABS: BILIRUBIN,TOTAL 0.3 MG/DL (0.1-1.0)
[2021-09-28 12:25] LABS: CREATININE SERUM 0.73 MG/DL (0.60-1.30)
[2021-09-28 12:28] LABS: MAGNESIUM 1.4 MG/DL (1.6-2.4)
--- NOTE | 2021-09-28 12:32 | Diagnostic Imaging Report ---
EXAMINATION: Chest 1 view HISTORY: COVID+ COMPARISON: 06/22/2020 FINDINGS: Heart size and pulmonary vasculature are normal. The lungs are clear without consolidation, pleural effusion, or pneumothorax. The osseous structures are intact. IMPRESSION: 1. No acute radiographic abnormality in the chest. Dictated by: Dictated on workstation # [id number]
[2021-09-28 12:35] LABS: BACTERIA,URINE LARGE /HPF
[2021-09-28 12:35] LABS: ERYTHROCYTE SEDIMENTATION RATE 47 MM/HR (0-30)
[2021-09-28] MEDS ORDERED: HOLD METFORMIN - RECEIVED CONTRAST 20 ML VIAL IV SCH (13:15)
[2021-09-28] MEDS ORDERED: IOHEXOL 350 MG/ML 100 ML (OMNIPAQUE 350) VIAL IV ONE (13:15)
[2021-09-28] MEDS ORDERED: NS 100 ML (IVPB) BAG IV ONE (13:15)
[2021-09-28] MEDS ORDERED: CIPROFLOXACIN IV 400MG/200ML 200 ML IV ONE (13:30)
--- NOTE | 2021-09-28 13:51 | Diagnostic Imaging Report ---
PROCEDURE: CT angiography of the chest with contrast. TECHNIQUE: Multiple contiguous axial images were obtained through the chest after uneventful bolus administration of intravenous contrast. 3D reconstructed CTA MIP acquisitions were also performed. Auto Exposure Controls were utilized during the CT exam to meet ALARA standards for radiation dose reduction. INDICATION: Weakness, COVID. FINDINGS: Intraluminal pulmonary arterial branches widely patent. No filling defect. No PE. The thoracic aorta patent and nonaneurysmal. The symmetrical air trapping and features of emphysema with some mild biapical pleural-parenchymal scarring, no infiltrate or groundglass opacity. No consolidating pneumonia or edema. There is abdominal aortic atherosclerotic vascular disease. The upper abdomen appeared nonacute. No effusion or pneumothorax. No mass or lymphadenopathy. There is atherosclerotic disease in the left subclavian artery beyond the takeoff of the left vertebral. This vessel shows occlusion with distal reconstitution, a presumed chronic but correlate with any new left upper extremity pain. IMPRESSION: 1. Negative for PE with clear lungs, features of COPD but no acute pulmonary pathology. 2. 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 While likely chronic correlate with any new left upper extremity pain. Dictated by: Dictated on workstation # [id number]
[2021-09-28] MEDS ORDERED: CIPR500T5 PO (14:07)
== END 2021-09-28 15:42 | disposition home or self-care (01) ==
LOC: EDUNIT# 11:24 → ER 11:26
DX: U07.1 COVID-19 (principal); J44.9 Chronic obstructive pulmonary disease, unspecified; N39.0 Urinary tract infection, site not specified; F17.210 Nicotine dependence, cigarettes, uncomplicated; Z73.0 Burn-out; Z85.41 Personal history of malignant neoplasm of cervix uteri; Z85.42 Personal history of malignant neoplasm of other parts of uterus; Z90.710 Acquired absence of both cervix and uterus; Z90.722 Acquired absence of ovaries, bilateral; Z88.1 Allergy status to other antibiotic agents
CPT/HCPCS: 36415; 71045; 71275; 80053; 81000; 83605; 83735; 84145; 85025; 85379; 85652; 86141; 87077; 87088; 87186; 93041; 96361; 96365

== ENCOUNTER 2022-07-17 20:12 | Emergency (ER) | payer MEDICARE, OTHER ==
[~2022-07-17 20:12] MED LIST changes: +CIPR500T5 PO; -MAGN250T2 PO; +MAGN250T31 PO
[2022-07-17] MEDS ORDERED: TRANEXAMIC ACID 100 MG/ML 10 ML INJECTION ONE (20:30)
--- NOTE | 2022-07-17 20:48 | ED EENT ---
History of Present Illness General Chief Complaint: Nasal Problems Stated Complaint: NOSE BLEED Nursing Triage Note: PT ARRIVAL TO ER WITH COMPLAINT OF NOSE BLEED OFF AND ON X3 DAYS. PT HAS SCHEDULED SURGERY TOMORROW WITH DR. CHASE. Source: patient Exam Limitations: no limitations History of Present Illness Date Seen by Provider: Jul 17, 2022 Time Seen by Provider: 20:45 Initial Comments This is a 72 yo female who presented to the ER via POV with c/o nose bleed intermittently over the past 3 days. One hour ago bleeding started and has been unable to stop with direct pressure and nasal clips. Has follow up with Dr. Chase tomorrow. Denies blood thinner, no trauma, or injury. Denies dizziness, syncope, nausea, vomiting. Allergies and Home Medications Allergies Coded Allergies: cephalexin (Verified Allergy, Unknown, Itching, 09/28/21) RASH phenobarbital (Verified Allergy, Unknown, 09/28/21) "GOES CRAZY , CANT CONTROL ANYTHING" Patient Home Medication List Home Medication List Reviewed: Yes Albuterol Sulfate (Ventolin Hfa) 18 Gm Hfa.aer.ad, 0 GM IH RTQ4HR PRN for SOA Prescribed by: TESSA GIBBONS on 06/24/20917 Amoxicillin/Potassium Clav (Augmentin 875-125 Tablet) 1 Each Tablet, 1 EACH PO BID Prescribed by: TESSA GIBBONS on 06/24/20917 Ciprofloxacin HCl (Ciprofloxacin HCl) 500 Mg Tablet, 500 MG PO BID Prescribed by: MARGUERITE ENRIQUE on 09/28/21 1407 Lactobacillus Acidophilus (Acidophilus Lactobacilli) 1 Each Capsule, 1 EACH PO TIDWM Prescribed by: TESSA GIBBONS on 06/24/20917 Magnesium (Magnesium) 250 Mg Tablet, 250 MG PO DAILY Prescribed by: TESSA GIBBONS on 06/24/20917 Review of Systems Review of Systems Constitutional: see HPI Past Rnqiltv-Twpbrt-Xyrswm Hx Patient Social History Tobacco Use?: Yes Tobacco type used: Cigarettes Smoking Status: Current Everyday Smoker Use of E-Cig and/or Vaping dev: No Substance use?: No Alcohol Use?: No Pt feels they are or have been: No Immunizations Up To Date Influenza Vaccine Up-to-Date: No; Not Current First/Initial COVID19 Vaccinat: DECLINED Second COVID19 Vaccination Jesus: DECLINED Third COVID19 Vaccination Date: DECLINED Past Medical History Surgeries: Yes Hysterectomy, Oophorectomy Respiratory: Yes (mycoplasma pnuemonia) Pneumonia, COPD Cardiac: No Neurological: No Reproductive Disorders: 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 Sexually Transmitted Disease: No Gastrointestinal: No Musculoskeletal: No Endocrine: No Cancer: Yes Cervical, Uterine Did You Recieve Any Treatments: Yes What Type of Treatment Did You: Surgical Intervention Psychosocial: No Integumentary: No Blood Disorders: No Family Medical History Cardiovascular disease 19 MOTHER FH: CVA (cerebrovascular accident) 19 MOTHER Stroke or transient ischemic attack in father 19 FATHER Valvular heart disease G8 BROTHER SOCIAL HISTORY: -SMOKES 1 TO 3 PPD -ETOH--DENIES USE -DRUGS--DENIES USE Physical Exam Vital Signs Vital Signs - First Documented 07/17/22 20:18 Temp 36.6 Pulse 71 Resp 18 B/P (MAP) 108/65 (79) Pulse Ox 96 O2 Delivery Room Air Height, Weight, BMI Height: 5'0" Weight: 90lbs. oz. 40.261048hv; 18.00 BMI Method:Stated General Appearance: WD/WN, no apparent distress Nose: active bleeding (right nare) Mouth/Throat: normal mouth inspection, pharynx normal; No excessive drooling Neck: full range of motion, normal inspection Cardiovascular: regular rate, rhythm, no murmur Respiratory: lungs clear, normal breath sounds, no respiratory distress, no accessory muscle use Gastrointestinal: normal bowel sounds, non tender, soft Neurologic/Psychiatric: no motor/sensory deficits, alert, normal mood/affect, oriented x 3 Skin: normal color, warm/dry Progress/Results/Core Measures Results/Orders My Orders Medications Given in ED Vital Signs/I&O Blood Pressure Mean: 79 Progress Progress Note : Progress Note VSS. Afrin and TXA saturated in [place], packing to right nare with nasal clip for apx 25-30 minutes. Removed, bleeding stopped. Observed for additional 20 minutes post packing removal. No return of bleeding. Has follow up with ENT tomorrow. Return precautions discussed. Discharge POC reviewed and she is agreeable with plan. Departure Impression Primary Impression: Nasal bleeding Disposition: 01 HOME, SELF-CARE Condition: Improved Departure-Patient Inst. Decision time for Depature: 20:46 Referrals: SHAI,TESSA A MD (PCP/Family) Primary Care Physician Patient Instructions: Nosebleeds ED Add. Discharge Instructions: Plan: 1. Avoid sneezing or blowing your nose to prevent recurrent of bleeding. 2. If your nose starts bleeding again you can spray two sprays of Afrin in each nostril and apply nasal clip, wait 30 minutes before removing clip. 3. You can try ice pack to nose for 20 minutes at a time with pressure to see if this will stop bleeding. 4. If you are unable to stop the bleeding or you feel blood going down back of your throat with clip, return to ER. 5. Keep follow up with Dr. Chase tomorrow as scheduled. 6. Return to ER for any new, concerning, or worsening symptoms. All discharge instructions reviewed with patient and/or family. Voiced understanding. MESERET ALDRICH CHICKEN HANDLER Jul 17, 2022 20:48
[2022-07-17] MEDS ORDERED: OXYMETAZOLINE (AFRIN) 0.05% NA 30 ML BTL ONE (21:00)
[2022-07-17 21:28] VITALS: BP 118/64
== END 2022-07-17 21:29 | disposition home or self-care (01) ==
LOC: EDUNIT# 20:12 → ER 20:15
DX: R04.0 Epistaxis (principal); F17.210 Nicotine dependence, cigarettes, uncomplicated; Z28.310 Unvaccinated for COVID-19
CPT/HCPCS: 99281

== ENCOUNTER → 2023-01-08 | Outpatient (CLI) | payer MEDICARE, OTHER ==
--- NOTE | 2023-01-08 15:26 | Diagnostic Imaging Report ---
Indication: Cough and congestion. Patient is COVID 19 positive. Time of Exam: 1:32 PM Correlation is made with prior chest from 11/13/2015. Heart size normal. Lungs are hyperinflated consistent with COPD. No infiltrates are detected. There is no effusion or pneumothorax. IMPRESSION: COPD. No acute feature is detected. Dictated by: Dictated on workstation # [id number]
== END ==
LOC: RAD 13:14
PROVIDERS: ATTEND Nurse Practitioner Family
DX: J44.9 Chronic obstructive pulmonary disease, unspecified (principal); U07.1 COVID-19
CPT/HCPCS: 71046

== ENCOUNTER → 2023-04-08 | Outpatient (CLI) | payer MEDICARE, OTHER ==
[~2023-04-08] MED LIST changes: +HOLD METFORMIN - RECEIVED CONTRAST 20 ML VIAL IV SCH; +IOHEXOL 350 MG/ML 100 ML (OMNIPAQUE 350) VIAL IV ONE; +NS 100 ML (IVPB) BAG IV ONE
[2023-04-08 08:21] LABS: CREATININE SERUM 0.72 MG/DL (0.60-1.30)
--- NOTE | 2023-04-08 09:23 | Diagnostic Imaging Report ---
PROCEDURE: CT chest with contrast only. TECHNIQUE: Multiple contiguous axial images were obtained through the chest after administration of intravenous contrast. Auto Exposure Controls were utilized during the CT exam to meet ALARA standards for radiation dose reduction. INDICATION: Cough. COMPARISON: 09/28/2021. FINDINGS: No significant adenopathy within chest. Scattered vascular calcifications without aneurysmal dilatation of the thoracic aorta. The heart is within normal limits in size. No significant pericardial effusion. No pleural effusion. Segmental branch of a right upper lobe bronchus is present extending medially from the trachea, pig bronchus. No pneumothorax. Mild biapical pleural parenchymal scarring. Mild reticular opacities are again noted within the medial aspect of the right middle lobe and anterior aspect of the lingula. These appear relatively stable from the prior examination. The lungs are hyperinflated, though unchanged from the prior exam. Advanced calcifications within the abdominal aorta. The visualized portions of the upper abdomen are otherwise unremarkable. No acute osseous abnormality. IMPRESSION: Stable mild pulmonary hyperinflation, likely related to background chronic obstructive pulmonary disease. Minimal scattered scarring and/or atelectasis within the right middle lobe and lingula. Additional findings as above. Dictated by: Dictated on workstation # [id number]
== END ==
LOC: RAD 07:52
PROVIDERS: ATTEND Nurse Practitioner Family
DX: J44.9 Chronic obstructive pulmonary disease, unspecified (principal); R63.4 Abnormal weight loss; J98.11 Atelectasis; J98.4 Other disorders of lung
CPT/HCPCS: 36415; 71260; 82565; 84520